=== PATIENT | female | born 1940 | race Caucasian/White ===

== ENCOUNTER 2018-03-01 13:13 | Observation (INO) | payer MEDICARE, OTHER ==
[2018-03-01 13:28] LABS: WHITE BLOOD COUNT 7.1 10^3/ul (4.8-10.8)
[2018-03-01 13:28] LABS: ADD MAN DIFF? NO; BASOPHILS % 0.6 % (0.0-2.0); EOSINOPHILS # 0.1 10^3/ul (0.0-0.5); EOSINOPHILS % 1.6 % (0.0-7.0); HEMATOCRIT 37.8 % (37.0-47.0); HEMOGLOBIN 12.3 g/dl (12.0-16.0); LYMPHOCYTES # 2.1 10^3/ul (0.8-2.9); LYMPHOCYTES % 29.1 % (15.0-51.0); MEAN CORPUSCULAR HEMOGLOBIN 30.3 pg (29.0-33.0); MEAN CORPUSCULAR HGB CONC 32.5 g/dl (32.0-37.0); MEAN CORPUSCULAR VOLUME 93.1 fl (82.0-101.0); MEAN PLATELET VOLUME 9.3 fl (7.4-10.4); MONOCYTE # 0.9 10^3/ul (0.3-0.9); NEUTROPHILS % 56.4 % (39.0-77.0); PLATELET COUNT 251 10^3/UL (140-415); RED BLOOD COUNT 4.06 10^6/ul (4.20-5.40); RED CELL DISTRIBUTION WIDTH 13.5 % (11.5-14.5)
[2018-03-01 13:41] LABS: INR 0.85; PROTIME 11.7 Sec (11.9-14.9); PT RATIO 0.9
[2018-03-01 13:41] LABS: HEMOGLOBIN A1C 5.5 % (0-5.9)
[2018-03-01 13:42] LABS: PARTIAL THROMBOPLASTIN TIME 30.6 Sec (25.0-35.0)
[2018-03-01 13:43] LABS: ANION GAP 16 (8-16); BLOOD UREA NITROGEN 23 mg/dl (7-20); CALCIUM 9.9 mg/dl (8.4-10.2); CARBON DIOXIDE 29 mmol/L (21-31); CHLORIDE 102 mmol/L (97-110); CHOL/HDL RATIO 3.2 RATIO; CHOLESTEROL 222 mg/dl (100-200); CREATINE KINASE 88 IU/L (23-200); CREATININE 1.15 mg/dl (0.44-1.00); GLUCOSE 94 mg/dl (70-220); HDL CHOLESTEROL 69 mg/dl (33-92); LDL CHOLESTEROL,CALCULATED 133 mg/dl; POTASSIUM 4.7 mmol/L (3.5-5.1); SODIUM 142 mmol/L (135-144); TRIGLYCERIDES 102 mg/dl (0-149)
[2018-03-01 13:55] LABS: CK INDEX 0.5; TROPONIN-I < 0.012 ng/ml (0.000-0.120)
[2018-03-01] MEDS: SOD CHLORIDE 0.9% 500 ML IV (14:02)
[2018-03-01] MEDS: SOD CHLORIDE 0.9% 100 ML (14:22)
[2018-03-01] MEDS: IODIXANOL LOCM 100 ML BTL (14:22)
[2018-03-01] MEDS: ASPIRIN 81 MG TAB PO (15:24)
[2018-03-01] MEDS ORDERED: 1/2 NS + KCL 20 MEQ 1,000 ML IV (15:39)
[2018-03-01] MEDS ORDERED: ONDANSETRON 4 MG INJ IV (16:00)
[2018-03-01] MEDS ORDERED: NACL 0.9% 3 ML SYG IV (16:00)
[2018-03-01] MEDS ORDERED: MAGNESIUM HYDROXIDE 30ML CUP PO (16:00)
[2018-03-01] MEDS ORDERED: ACETAMINOPHEN 325 MG TAB PO (16:00)
[2018-03-01] MEDS ORDERED: ZOLPIDEM 5 MG TAB PO (16:00)
[2018-03-01] MEDS ORDERED: morphine 2 MG INJ IV (16:00)
[2018-03-01] MEDS ORDERED: DOCUSATE SODIUM 100 MG CAP PO (16:00)
[2018-03-01] MEDS: HYDROCODONE/APAP (5/325) TAB PO (16:41)
[2018-03-01] MEDS: SOD CHLORIDE 0.9% 1,000 ML IV (17:40)
[2018-03-01] MEDS ORDERED: GUAIFENESIN/DM 5ML CUP PO (18:00)
[2018-03-01] MEDS: GUAIFENESIN/DM 5ML CUP PO ×2 (18:42→20:50)
[2018-03-01] MEDS: ATORVASTATIN 40 MG TAB PO (20:50)
[2018-03-01] MEDS: ZOLPIDEM 5 MG TAB PO (23:40)
[2018-03-02] MEDS: SOD CHLORIDE 0.9% 1,000 ML IV (06:21)
[2018-03-02 07:03] LABS: ADD MAN DIFF? NO
[2018-03-02 07:13] LABS: BASOPHILS % 0.4 % (0.0-2.0); EOSINOPHILS # 0.2 10^3/ul (0.0-0.5); EOSINOPHILS % 2.4 % (0.0-7.0); LYMPHOCYTES # 2.4 10^3/ul (0.8-2.9); LYMPHOCYTES % 28.5 % (15.0-51.0); MEAN CORPUSCULAR HEMOGLOBIN 30.1 pg (29.0-33.0); MEAN CORPUSCULAR HGB CONC 32.4 g/dl (32.0-37.0); MEAN CORPUSCULAR VOLUME 92.9 fl (82.0-101.0); MEAN PLATELET VOLUME 9.7 fl (7.4-10.4); MONOCYTE # 1.1 10^3/ul (0.3-0.9); MONOCYTES % 13.3 % (0.0-11.0); NEUTROPHIL # 4.6 10^3/ul (1.6-7.5); PLATELET COUNT 246 10^3/UL (140-415); RED BLOOD COUNT 3.66 10^6/ul (4.20-5.40); RED CELL DISTRIBUTION WIDTH 13.7 % (11.5-14.5)
[2018-03-02 07:13] LABS: WHITE BLOOD COUNT 8.3 10^3/ul (4.8-10.8)
[2018-03-02 07:38] LABS: ANION GAP 15 (8-16); BLOOD UREA NITROGEN 29 mg/dl (7-20); CALCIUM 9.1 mg/dl (8.4-10.2); CARBON DIOXIDE 27 mmol/L (21-31); CHLORIDE 103 mmol/L (97-110); CHOL/HDL RATIO 3.3 RATIO; CHOLESTEROL 196 mg/dl (100-200); CREATININE 1.18 mg/dl (0.44-1.00); GLUCOSE 65 mg/dl (70-220); HDL CHOLESTEROL 58 mg/dl (33-92); LDL CHOLESTEROL,CALCULATED 112 mg/dl; PHOSPHORUS 4.3 mg/dl (2.5-4.9); POTASSIUM 4.2 mmol/L (3.5-5.1); SODIUM 141 mmol/L (135-144); TRIGLYCERIDES 132 mg/dl (0-149)
[2018-03-02] MEDS: PAROXETINE 20 MG TAB PO (08:50)
[2018-03-02] MEDS: QUETIAPINE 25 MG TAB PO (08:50)
[2018-03-02] MEDS: ASPIRIN (EC) 325 MG TAB PO (08:50)
[2018-03-02] MEDS ORDERED: NON-FORMULARY/PATIENT OWN MED (Memantine HCl/Donepezil HCl (Namzaric 28 mg-10 mg Capsule) PO (09:00)
[2018-03-02 09:41] LABS: HEMOGLOBIN A1C 5.4 % (0-5.9)
[2018-03-02] MEDS: MEMANTINE 10 MG TAB PO (09:44)
[2018-03-02] MEDS: DONEPEZIL 10 MG TAB PO (09:44)
== END 2018-03-02 16:42 | disposition home or self-care (01) ==
LOC: E/R 13:13 → MS4 15:26
DX: G45.9 Transient cerebral ischemic attack, unspecified (principal); F03.90 Unspecified dementia, unspecified severity, without behavioral disturbance, psychotic disturbance, mood disturbance, and anxiety; N18.9 Chronic kidney disease, unspecified; Z82.49 Family history of ischemic heart disease and other diseases of the circulatory system
CPT/HCPCS: 36415; 70450; 70496; 70498; 71045; 80048; 80061; 82550; 82553; 83036; 83735; 84100; 84484; 85025; 85610; 85730; 92610; 93005; 93306; 93880; 97161; 99285-25; G0378